=== PATIENT | male | born 1955 | race Caucasian/White ===

== ENCOUNTER 2017-12-12 10:53 | Outpatient (CLI) | payer OTHER | END 2017-12-12 10:54 | disposition home or self-care (01) | LOC: SC 10:53 | PROVIDERS: ATTEND Internal Medicine Pulmonary Disease | DX: G47.30 Sleep apnea, unspecified (principal); G47.10 Hypersomnia, unspecified; G47.8 Other sleep disorders; R06.83 Snoring | CPT/HCPCS: 99203; 99212 ==

== ENCOUNTER 2018-01-21 19:47 | Outpatient (CLI) | payer OTHER | END 2018-01-21 19:48 | disposition home or self-care (01) | LOC: SC 19:47 | PROVIDERS: ATTEND Internal Medicine Pulmonary Disease | DX: G47.33 Obstructive sleep apnea (adult) (pediatric) (principal); G47.61 Periodic limb movement disorder | CPT/HCPCS: 95810 ==

== ENCOUNTER 2018-02-28 09:12 | Outpatient (CLI) | payer BC, OTHER | END 2018-02-28 09:13 | disposition home or self-care (01) | LOC: SC 09:12 | PROVIDERS: ATTEND Nurse Practitioner Family | DX: G47.33 Obstructive sleep apnea (adult) (pediatric) (principal) | CPT/HCPCS: 99212; 99214 ==

== ENCOUNTER 2018-05-02 10:11 | Outpatient (CLI) | payer BC | END 2018-05-02 10:12 | disposition home or self-care (01) | LOC: SC 10:11 | PROVIDERS: ATTEND Nurse Practitioner Family | DX: G47.33 Obstructive sleep apnea (adult) (pediatric) (principal) | CPT/HCPCS: 99212; 99214 ==

== ENCOUNTER 2018-07-25 14:40 | Outpatient (CLI) | payer BC | END 2018-07-25 14:41 | disposition home or self-care (01) | LOC: SC 14:40 | PROVIDERS: ATTEND Internal Medicine Pulmonary Disease | DX: G47.33 Obstructive sleep apnea (adult) (pediatric) (principal) | CPT/HCPCS: 99212; 99213 ==

== ENCOUNTER 2020-02-20 13:43 | Emergency (ER) | payer MEDICARE, OTHER ==
--- NOTE | 2020-02-20 14:27 | ED Physician Documentation ---
PD HPI FOCAL NEURO - Stated complaint Stated Complaint: R HAND NUMBNESS - Chief complaint Chief Complaint: Neuro - History obtained from History obtained from: Patient, Family - History of Present Illness Timing - onset: How many hours ago (2) Timing - duration: Hours Timing - details: Abrupt onset Severity of deficit: Moderate Weakness: Hand Numbness: Hand Associated symptoms: No: Headache, Nausea / vomiting, Seizure, Syncope, Chest pain, Neck pain Contributing factors: negative: Anticoagulated, Vascular dz, Atrial fibrillation Baseline status: positive: A&OX3, ambulatory, indep Similar symptoms before: Has not had sx before - Additional information Additional information: 64-year-old male presents to the emergency department with chief complaint of right hand numbness and inability to move. Symptoms began about 2 hours prior to arrival. 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 Shortly thereafter he developed numbness of the sandwich. He denies that at any point he had a headache facial droop or slurred speech. He denies chest pain or palpitations. He has had no history of similar. Proximately 3 weeks ago he had a left inguinal hernia repair this was done as an outpatient. He denies that he has had any calf pain leg swelling. No previous history of DVT or PE. No history of atrial fibrillation. Denies any history of hypertension or diabetes. He is a non- smoker. Upon arrival to the emergency department patient reports that his hand weakness had begun to improve. He now has normal motor function. He still reports mild numbness of the hand however. meds: Citalopram and prednisone. pmh: depression, gout Review of Systems Constitutional: denies: Fever, Chills Eyes: denies: Loss of vision Ears: denies: Loss of hearing, Ear pain Nose: denies: Rhinorrhea / runny nose Respiratory: denies: Dyspnea GI: denies: Abdominal Pain, Abdominal Swelling Musculoskeletal: denies: Neck pain, Back pain, Extremity pain, Joint pain, Extremity swelling Neurologic: reports: Focal weakness, Numbness. denies: Difficulty speaking, Ne ar syncope, Syncope, Seizure, Confused, Altered mental status, Unresponsive, Headache, Head injury Psychiatric: reports: Depressed. denies: Suicidal, Homicidal PD PAST MEDICAL HISTORY - Past Medical History Past Medical History: Yes Cardiovascular: None Respiratory: None Neuro: None Endocrine/Autoimmune: None GI: None : None HEENT: None Psych: None Musculoskeletal: None Derm: None - Past Surgical History Past Surgical History: No - Present Medications Home Medications: Ambulatory Orders Medication Instructions Recorded Confirmed Ibuprofen [Motrin] 800 mg PO Q8H PRN #30 tablet 06/17/14 Ondansetron Odt [Zofran] 4 mg TL Q6H PRN #14 tablet 06/17/14 Oxycodone HCl/Acetaminophen 1 - 2 each PO Q6H PRN #20 tablet 06/17/14 [Percocet 5-325 mg Tablet] Tamsulosin [Flomax] 0.4 mg PO DAILY #14 capsule 06/17/14 - Allergies Allergies/Adverse Reactions: Allergies Allergy/AdvReac Type Severity Reaction Status Date / Time Penicillins Allergy Unknown Verified 06/17/14 14:54 Sulfa (Sulfonamide Allergy Unknown Verified 06/17/14 14:54 Antibiotics) - Social History Does the pt smoke?: No Smoking Status: Never smoker Does the pt drink ETOH?: No Does the pt have substance abuse?: No - Immunizations Immunizations are current?: No - POLST Patient has POLST: No PD ED PE NORMAL - General General: Alert and oriented X 3, No acute distress - HEENT HEENT: Atraumatic, PERRL, EOMI - Neck Neck: Supple, no meningeal sign, No adenopathy - Cardiac Cardiac: RRR, No murmur - Respiratory Respiratory: No respiratory distress - Abdomen Abdomen: Normal bowel sounds, Non tender - Back Back: No CVA TTP - Extremities Extremities: No deformity - Neuro Neuro: Alert and oriented X 3, 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, No motor deficit, No sensory deficit, Normal speech Eye Opening: Spontaneous Motor: Obeys Commands Verbal: Oriented GCS Score: 15 - Psych Psych: Normal mood NIHSS - Level of Consciousness Level of consciousness: (0) Alert, Keenly responsive LOC Questions: (0) Answers both Q's correct LOC Commands: (0) Performs both correctly - Gaze Best Gaze: (0) Normal - Visual Visual: (0) No loss - Facial Palsy Facial Palsy: (0) Normal, symmetrical movement - Motor Arms (both separate) Motor Arm (right): (0) No drift Motor Arm (left): (0) No drift - Motor Legs (both separate) Motor Leg (right): (0) No drift - Limb Ataxia Limb Ataxia: (0) Absent - Sensory Sensory: (0) Normal - Best Language Best Language: (0) No aphasia - Dysarthria Dysarthria: (0) Normal - Extinction and Inattention (formally neg Extinction and inattention: (0) No abnormality Results - Vitals Vitals: Vital Signs - 24 hr 02/20/20 02/20/20 13:57 15:47 Temperature 36.8 C Heart Rate 70 77 Respiratory 18 20 Rate Blood Pressure 138/73 H O2 Saturation 97 96 Oxygen O2 Source Room air - EKG (time done) 1435 Rate: Rate (enter#) (68) Rhythm: NSR [place]: Normal Intervals: Normal ND QRS: Normal Ischemia: Normal ST segments Computer interpretation: Agree with computer - Labs Labs: Laboratory Tests 02/20/20 02/20/20 02/20/20 14:10 14:10 14:10 WBC 7.8 RBC 4.87 Hgb 15.1 Hct 43.6 MCV 89.5 MCH 31.0 MCHC 34.6 RDW 12.5 Plt Count 218 MPV 10.9 Neut # (Auto) 6.0 Lymph # (Auto) 1.4 L Dunn # (Auto) 0.4 Eos # (Auto) 0.1 Baso # (Auto) 0.1 Absolute Nucleated RBC 0.00 Nucleated RBC % 0.0 Sodium 136 Potassium 3.9 Chloride 101 Carbon Dioxide 26 Anion Gap 9.0 BUN 19 Creatinine 1.0 Estimated GFR (MDRD) 75 L Glucose 165 H Calcium 8.9 Total Bilirubin 0.7 AST 24 ALT 24 Alkaline Phosphatase 62 Troponin I High Sens 3.8 Total Protein 7.0 Albumin 3.8 Globulin 3.2 Albumin/Globulin Ratio 1.2 Lipase 27 - Rads (name of study) CT angio head Radiology: Final report received, Discussed with rads (No significant intracranial arterial abnormality is seen. No masses or abnormal enhancement is seen. No imaging explanation is found for patient's presenting symptoms.) CT angio neck Radiology: Final report received (80 to 90% narrowing involving the origin of the left internal carotid artery with focal soft plaque. There is a 50 to 60% narrowing seen in the right proximal internal carotid or artery.) PD MEDICAL DECISION MAKING - ED course Complexity details: reviewed results, re-evaluated patient, d/w patient, d/w family ED course: 64-year-old male presented to the emergency department with acute onset right hand numbness and loss of movement. That resolved after about [address] angios of the neck reveals about a 90% narrowing in the left internal carotid artery. There is an associated 50 to 60% narrowing in the right proximal internal carotid artery.CT angios of the head was normal. Pt give 324 mg asa in the ED - Symptoms are consistent with a TIA however the stenosis and narrowing of the carotid arteries is significant and worrisome. - Patient is going to be transferred to [facility] admitted to the hospitalist service under Dr. Lilliam Castellano. At [facility] we expect that he will undergo neurovascular intervention for the carotid artery stenosis. He will be sent via ALS Departure - Departure Disposition: 02 Transfer Acute Care Hosp Clinical Impression: TIA (transient ischemic attack) Carotid artery stenosis Qualifiers: Laterality: bilateral Qualified Code(s): I65.23 - Occlusion and stenosis of bilateral carotid arteries
[2020-02-20 14:31] LABS: BASOPHILS # (AUTO) 0.1 10^3/uL (0.0-0.1); BASOPHILS % (AUTO) 0.8 %; EOSINOPHILS # (AUTO) 0.1 10^3/uL (0.0-0.7); EOSINOPHILS % (AUTO) 0.6 %; HGB - HEMOGLOBIN 15.1 g/dL (14.0-18.0); LYMPHOCYTES # (AUTO) 1.4 10^3/uL (1.5-3.5); LYMPHOCYTES % (AUTO) 17.2 %; MEAN CORPUSCULAR HGB CONC 34.6 g/dL (32.0-36.0); MEAN CORPUSCULAR VOLUME 89.5 fL (80.0-94.0); MEAN PLATELET VOLUME 10.9 fL (7.4-11.4); MONOCYTES # (AUTO) 0.4 10^3/uL (0.0-1.0); MONOCYTES % (AUTO) 4.8 %; NEUTROPHILS % (AUTO) 76.2 %; PLT - PLATELET COUNT 218 10^3/uL (130-450); RED BLOOD COUNT 4.87 10^6/uL (4.70-6.10); RED CELL DISTRIBUTION WIDTH 12.5 % (12.0-15.0); WHITE BLOOD COUNT 7.8 x10^3/uL (4.8-10.8)
[2020-02-20] MEDS ORDERED: IOVERSOL 320 100 ML VIAL IVP ONE ×2 (14:37→15:33)
[2020-02-20 14:52] LABS: ALBUMIN 3.8 g/dL (3.2-5.5); ALBUMIN/GLOBULIN RATIO 1.2 (1.0-2.2); BILIRUBIN,TOTAL 0.7 mg/dL (0.2-1.0); CALCIUM 8.9 mg/dL (8.5-10.3)
--- NOTE | 2020-02-20 15:26 | XRAY Report ---
PROCEDURE: Chest 1 View X-Ray INDICATIONS: Chest Pain TECHNIQUE: One view of the chest was acquired. COMPARISON: None FINDINGS: Surgical changes and devices: None. Lungs and pleura: No pleural effusions or pneumothorax. Lungs are clear. Mediastinum: Mediastinal contours appear normal. Heart size is normal. Bones and chest wall: No suspicious bony lesions. Overlying soft tissues appear unremarkable. IMPRESSION: No acute cardiopulmonary pathology. Reviewed by: Collin Loza MD on 02/20/2020 3:25 PM PDT Approved by: Collin Loza MD on 02/20/2020 3:25 PM PDT Station ID: [id number]
--- NOTE | 2020-02-20 15:31 | CT Report ---
PROCEDURE: ANGIO HEAD W/WO INDICATIONS: L sided facial droop CONTRAST: IV CONTRAST: Optiray 320 ml: 80 PO CONTRAST: *NO PO CONTRAST TECHNIQUE: Precontrast 4.5 mm thick angled axial sections acquired from the foramen magnum to the vertex. Afte r the administration of intravenous contrast, 1 mm thick sections acquired through the [place] of [place] is. Postcontrast 4.5 mm thick sections then re-acquired from the foramen magnum to the vertex. 3-di mensional ahrphhb-muqdzbohg-zlihmyowso (MIP) and/or volume rendering reformats were acquired of the c entral intracranial vasculature. For radiation dose reduction, the following was used: automated ex posure control, adjustment of mA and/or kV according to patient size. COMPARISON: Correlation is made with the accompanying neck angiogram 02/20/2020. FINDINGS: Image quality: Excellent. Anterior circulation: Intracranial internal carotid arteries are normal in size and flow. The flow within the paired anterior cerebral arteries is normal and symmetric. The flow within the middle cer ebral arteries is normal and symmetric. The anterior communicating artery is seen. No aneurysms are seen. Posterior circulation: Visualized portions of the vertebral arteries demonstrate normal caliber, and join to form a normal appearing basilar artery. Flow within the posterior cerebral arteries is norm al and symmetric. No aneurysms are seen. CSF spaces: Ventricles are normal in size and shape. Basal cisterns are patent. No extra-axial flu id collections. Brain: No midline shift. No intracranial bleeds or masses. Ball-white matter interface appears int act. Skull and face: Calvarium and facial bones appear intact, without suspicious lesions. Sinuses: Visualized sinuses and mastoids are clear. IMPRESSION: No imaging explanation is found for the patient's presenting symptoms. No significant intracranial abnormality is seen. No masses or abnormal enhancement can be seen. No significant intracranial arterial abnormality is seen. Reviewed by: Yuri Perez MD on 02/20/2020 2:29 PM AKDT Approved by: Yuri Perez MD on 02/20/2020 2:29 PM AKDT Station ID: [id number]
--- NOTE | 2020-02-20 15:34 | CT Report ---
PROCEDURE: ANGIO NECK W INDICATIONS: right arm weakness CONTRAST: IV CONTRAST: Optiray 320 ml: 80 PO CONTRAST: *NO PO CONTRAST TECHNIQUE: After the administration of intravenous contrast, 1.5 mm axial sections acquired from the aortic arch to the [place] of [place]. Coronal 3-D maximum intensity projection (MIP) and/or volume rendering ref ormats were then performed. For radiation dose reduction, the following was used: automated exposur e control, adjustment of mA and/or kV according to patient size. COMPARISON: Correlation is made with the accompanying intracranial CT angiogram 02/20/2020. FINDINGS: Image quality: Excellent. Carotid system: The great vessels demonstrate a conventional anatomy as they arise from the aortic a rch. The origins of the common carotid arteries appear patent. The common carotid arteries demonstr ate normal calibers and courses. The bifurcation regions demonstrate atherosclerotic irregularity an d calcification. There is focal soft plaque seen involving the origin of the left internal carotid ar shailesh, with 80-90% narrowing, as on series 4 image 109. There is 50-60% narrowing seen involving the r ight proximal internal carotid artery. Posterior circulation: The origins of the vertebral arteries appear patent. The more superior porti ons of the vertebral arteries demonstrate normal course and caliber. They join to form a normal appe aring basilar artery. Soft tissues: Visualized neck soft tissues demonstrate no suspicious abnormalities. The thyroid gla nd is normal in size. Bones: No suspicious bony lesions. Visualized cervical spine appears normally aligned. Age-appro priate degenerative changes are seen. IMPRESSION: 80-90% narrowing seen involving the origin of the left internal carotid artery, with focal soft plaqu e. A vascular surgery/interventional radiology consultation is recommended. There is 50-60% narrowing seen involving the right proximal internal carotid artery. The estimate of stenosis included in the report of the imaging study was calculated using the NASCET method Reviewed by: Yuri Perez MD on 02/20/2020 2:33 PM AKDT Approved by: Yuri Perez MD on 02/20/2020 2:33 PM AKDT Station ID: [id number]
[2020-02-20] MEDS ORDERED: ASPIRIN CHEW 81 MG TABLET PO STA (16:31)
[2020-02-20 18:11] VITALS: BP 128/70
== END 2020-02-20 18:00 | disposition short-term general hospital (02) ==
LOC: ED 13:43
DX: G45.9 Transient cerebral ischemic attack, unspecified (principal); I65.23 Occlusion and stenosis of bilateral carotid arteries
CPT/HCPCS: 36415; 70496; 70498; 71045; 80053; 83690; 84484; 85025; 93005; 99284; 99285; A9270; Q9967

== ENCOUNTER 2020-02-20 18:06 | Outpatient (CLI) | payer MEDICARE, OTHER | END 2020-02-20 18:07 | disposition short-term general hospital (02) | LOC: EMS 18:06 | PROVIDERS: ATTEND Surgery | DX: G45.9 Transient cerebral ischemic attack, unspecified (principal) | CPT/HCPCS: A0425; A0426 ==

== ENCOUNTER 2020-06-17 10:36 | Outpatient (CLI) | payer MEDICARE, OTHER ==
[2020-06-17] MEDS ORDERED: IOVERSOL 320 50 ML VIAL ONE (10:54)
[2020-06-17] MEDS ORDERED: IOVERSOL 320 100 ML VIAL IVP ONE ×2 (10:54→18:42)
[2020-06-17 11:16] LABS: ALBUMIN 4.2 g/dL (3.2-5.5); ALBUMIN/GLOBULIN RATIO 1.4 (1.0-2.2); CALCIUM 9.2 mg/dL (8.5-10.3); TOTAL PROTEIN 7.2 g/dL (6.7-8.2)
--- NOTE | 2020-06-17 13:24 | CT Report ---
PROCEDURE: Abdomen/Pelvis W INDICATIONS: ABD PAIN CONTRAST: IV CONTRAST: Optiray 320 ml: 100 PO CONTRAST: Optiray 320 ml50 TECHNIQUE: After the administration of contrast, 5 mm thick sections acquired from the diaphragms to the sym physis. 5 mm thick coronal and sagittal reformats were acquired. For radiation dose reduction, the following was used: automated exposure control, adjustment of mA and/or kV according to patient size . COMPARISON: None. FINDINGS: Image quality: Excellent. ABDOMEN: Lung bases: Lung bases are clear. Heart size is normal. Solid organs: Liver and spleen are normal in size and enhancement. Gallbladder is unremarkable. Bi liary system is non dilated. Pancreas enhances normally. No adrenal nodules. Right kidney: 3 mm nonobstructing lower pole stone. No renal mass or hydronephrosis. Left kidney: 1.6 cm in maximum diameter lower pole stone extending towards the renal pelvis, 7 mm non obstructing lower pole calyceal stone. No hydronephrosis. Peritoneum and bowel: Bowel loops demonstrate normal wall thickness and caliber. No free fluid or a ir. Sigmoid diverticulosis without evidence of diverticulitis. Nodes and vessels: No retroperitoneal or mesenteric adenopathy by size criteria. Aorta and inferior vena cava are normal in size. Miscellaneous: No ventral hernias. PELVIS: Genitourinary: Bladder wall thickness is normal. Enlarged prostate Miscellaneous: Small bilateral inguinal hernias containing fat. No inguinal adenopathy. Bones: No suspicious bony lesions. No vertebral body compression fractures. IMPRESSION: 1. Nonobstructing left renal stones, measuring 7 mm and 16 mm respectively. 2. Small nonobstructing right renal stone. 3. Enlarged prostate. 4. Mild sigmoid diverticulosis. 5. Bilateral inguinal hernias containing fat. Reviewed by: Tacos Sanchez MD on 06/17/2020 1:23 PM PDT Approved by: Tacos Sanchez MD on 06/17/2020 1:23 PM PDT Station ID: [id number]
[2020-06-17] MEDS ORDERED: IOVERSOL 320 50 ML VIAL PO ONE (18:43)
== END 2020-06-17 10:37 | disposition home or self-care (01) ==
LOC: DI 10:36
PROVIDERS: ATTEND Nurse Practitioner Family
DX: N20.0 Calculus of kidney (principal); N40.0 Benign prostatic hyperplasia without lower urinary tract symptoms; K57.30 Diverticulosis of large intestine without perforation or abscess without bleeding; K40.20 Bilateral inguinal hernia, without obstruction or gangrene, not specified as recurrent
CPT/HCPCS: 36415; 74177; 80053; Q9967

== ENCOUNTER 2021-12-16 21:06 | Outpatient (CLI) | payer MEDICARE, OTHER | END 2021-12-16 21:07 | disposition short-term general hospital (02) | LOC: EMS 21:06 | DX: R07.9 Chest pain, unspecified (principal); R61 Generalized hyperhidrosis; R06.00 Dyspnea, unspecified; R42 Dizziness and giddiness | CPT/HCPCS: A0425; A0433 ==

== ENCOUNTER 2023-09-01 08:00 | Outpatient (CLI) | payer MEDICARE, OTHER ==
--- NOTE | 2023-09-02 00:19 | XRAY Report ---
PROCEDURE: Abdomen 1 View (KUB) INDICATIONS: KIDNEY STONES TECHNIQUE: One view of the abdomen. COMPARISON: CT abdomen and pelvis 05/25/2023 FINDINGS: Paucity of small bowel gas. No evidence of obstruction. There is a 2 cm calcification projecting over the left kidney, similar to prior CT. Additional smalle r calcification seen just inferior to this. No right renal calcifications are seen. The osseous structures are unremarkable. IMPRESSION: Left renal calcifications measuring up to 2 cm, similar in appearance to prior CT. Reviewed by: Sunday Sutton MD on 09/02/2023 12:17 AM PST Approved by: Sunday Sutton MD on 09/02/2023 12:17 AM PST Station ID: [id number]
== END 2023-09-01 23:59 | disposition home or self-care (01) ==
LOC: DI.WOS 08:00
PROVIDERS: ATTEND Urology
DX: N20.0 Calculus of kidney (principal)

== ENCOUNTER 2023-10-31 06:22 | Day surgery (SDC) | payer MEDICARE, OTHER ==
[2023-10-31] MEDS: LACTATED RINGERS 1,000 ML IV ONE ×4 (06:30→09:30)
--- NOTE | 2023-10-31 06:53 | ANESTHESIA ---
Pre-Anesthesia VS, & Labs - Diagnosis Screening, family hx colon ca, L kidney stone - Procedure colonoscopy, ESWL Vital Signs: Temp Pulse Resp BP Pulse Ox O2 Flow Rate 36.2 C L 75 18 140/88 H 98 10/31/23 06:30 10/31/23 06:30 10/31/23 06:30 10/31/23 06:30 10/31/23 06:30 Height: 5 ft 8 in Weight (kg): 80.3 kg Body Mass Index: 26.9 BMI Classification: Overweight - NPO >8 hours Last Fluid Intake: am prep - Lab Results Lab results reviewed: Yes Home Medications and Allergies Home Medications: Ambulatory Orders Aspirin EC [Ecotrin] 81 mg PO DAILY 10/24/23 Astaxanthin 12 mg PO DAILY 10/24/23 Cholecalciferol [Vitamin D3] 5,000 unit PO DAILY 10/24/23 Clopidogrel [Plavix] 75 mg PO DAILY 10/24/23 Ibuprofen [Motrin] 400 mg PO Q8H PRN 10/24/23 Magnesium 250 mg PO ONCE 10/24/23 Multivitamin 1 each PO DAILY 10/24/23 Rosuvastatin Calcium [Crestor] 10 mg PO DAILY 10/24/23 [place] 540 mg PO DAILY 10/24/23 Ubidecarenone/Vit E Acet [Co Q-10 100 mg Softgel] 1 each PO DAILY 10/24/23 allopurinoL [Zyloprim] 100 mg PO DAILY 10/24/23 Aspirin EC [Ecotrin] 81 mg PO DAILY 10/24/23 Astaxanthin 12 mg PO DAILY 10/24/23 Cholecalciferol [Vitamin D3] 5,000 unit PO DAILY 10/24/23 Clopidogrel [Plavix] 75 mg PO DAILY 10/24/23 Ibuprofen [Motrin] 400 mg PO Q8H PRN 10/24/23 Magnesium 250 mg PO ONCE 10/24/23 Multivitamin 1 each PO DAILY 10/24/23 Rosuvastatin Calcium [Crestor] 10 mg PO DAILY 10/24/23 Saw Row[place] 540 mg PO DAILY 10/24/23 Ubidecarenone/Vit E Acet [Co Q-10 100 mg Softgel] 1 each PO DAILY 10/24/23 allopurinoL [Zyloprim] 100 mg PO DAILY 10/24/23 Allergies/Adverse Reactions: Allergies Allergy/AdvReac Type Severity Reaction Status Date / Time midazolam [From Versed] Allergy Hallucinati Verified 10/24/23 12:12 ons Penicillins Allergy Unknown Verified 06/17/14 14:54 Sulfa (Sulfonamide Allergy Unknown Verified 06/17/14 14:54 Antibiotics) Anes History & Medical History - Anesthetic History Anesthesia Complications: reports: No previous complications Family history of Anesthesia Complications: Denies Family history of Malignant Hyperthermia: Denies - Medical History Cardiovascular: reports: Hypertension, High cholesterol, PR Pulmonary: reports: Sleep apnea Gastrointestinal: reports: None Urinary: reports: Benign prostate hypertrophy, Kidney stones, Other Neuro: reports: None Musculoskeletal: reports: Gout Endocrine/Autoimmune: reports: None Blood Disorders: reports: None Skin: reports: Other Smoking Status: Never smoker - Surgical History General: reports: Colonoscopy, Other Cardiothoracic: reports: Coronary stent Neurologic: reports: Other Dermatologic: reports: Skin cancer surgery Exam General: Alert, Oriented x3 Dental: WNL Mouth Openin Fingerbreadth Neck Mobility: Normal Mallampati classification: II Thyromental Distance: 4-6 cm Respiratory: Lungs clear, Normal breath sounds, No respiratory distress Cardiovascular: Regular rate Neurological: Normal speech Mental/Cognitive Status: Alert/Oriented X3, Normal for patient Cognitive Status: Within normal limits Plan Anesthesia Type: General, Total IV Consent for Procedure(s) Verified and Reviewed: Yes Code Status: Attempt Resuscitation ASA classification: 3-Severe systemic disease Is this case an emergency?: No
[2023-10-31] MEDS ORDERED: PROPOFOL 500 MG/50 ML 500 MG/50 ML VIAL ONE (06:59)
[2023-10-31] MEDS ORDERED: LIDOCAINE-MPF 2% 5 ML VIAL ONE (06:59)
[2023-10-31] MEDS ORDERED: ePHEDrine 50 MG/ML VIAL IVP PRN (07:19)
[2023-10-31] MEDS ORDERED: fentaNYL 100 MCG/2 ML VIAL IVP PRN (07:19)
[2023-10-31] MEDS ORDERED: METOCLOPRAMIDE 10 MG/2 ML VIAL IVP PRN (07:19)
[2023-10-31] MEDS ORDERED: HYDROmorphone 0.5 MG/0.5 ML SYRINGE IVP PRN (07:19)
[2023-10-31] MEDS ORDERED: ATROPINE ABBOJECT 1 MG/10 ML SYRINGE IVP PRN (07:19)
[2023-10-31] MEDS ORDERED: NALOXONE 0.4 MG/ML VIAL IVP PRN (07:19)
[2023-10-31] MEDS ORDERED: ceFAZolin 2 GM VIAL ONE (07:19)
[2023-10-31] MEDS ORDERED: ONDANSETRON 4 MG/2 ML VIAL IVP PRN ×2 (07:19→08:55)
[2023-10-31] MEDS ORDERED: MORPHINE 2 MG/ML CARPUJECT IVP PRN (07:19)
[2023-10-31] MEDS ORDERED: fentaNYL 100 MCG/2 ML VIAL ONE (07:50)
[2023-10-31] MEDS ORDERED: LACTATED RINGERS 1,000 ML IV SCH (08:00)
[2023-10-31] MEDS ORDERED: ePHEDrine 50 MG/ML VIAL IVP ONE (08:09)
[2023-10-31] MEDS ORDERED: SODIUM CHLORIDE 0.9% 10 ML VIAL IVP ONE (08:10)
[2023-10-31] MEDS ORDERED: ONDANSETRON 4 MG/2 ML VIAL ONE (08:28)
[2023-10-31] MEDS ORDERED: DEXAMETHASONE 4 MG/ML VIAL ONE (08:28)
[2023-10-31] MEDS ORDERED: HYDROcod/ACETAM 5/325 MG TABLET PO PRN (08:55)
--- NOTE | 2023-10-31 09:01 | Discharge Plan ---
Discharge Plan Problem Reviewed?: Yes Disposition: Home, Self Care Condition: Good Prescriptions: Docusate Sodium 100Mg Capsule [Colace 100Mg Capsule] 100 mg PO DAILY #7 cap oxyCODONE [Roxicodone] 5 mg PO Q4H PRN #10 tablet PRN Reason: Pain Diet: Regular Activity Restrictions: No Restrictions Shower Restrictions: No Driving Restrictions: No Instruction Topics: Lithotripsy Shock Wave Additional Instructions or Follow Up instructions: You will be contacted for followup in about [address] Marlon Ulloa Smoking: If you smoke, Please STOP! Call for help.
--- NOTE | 2023-10-31 09:05 | OPERATIVE REPORT ---
Operative Report - General Procedure Date: 10/31/23 Planned Procedure: Left extracorporeal shock wave lithotripsy Pre-Op Diagnosis: Left kidney stone Procedure Performed: Left extracorporeal shock wave lithotripsy Post Op Diagnosis: same - Procedure Note Primary Surgeon: Marlon Anesthesia Provider: KELBY Mccarthy Anesthesia Technique: General LMA Findings: Large 14mm left renal stone Significant breaking up into fragments 2335 shocks Complications: Ectopy at end of case, so ended slightly early - Other Other Information/Narrative: After informed consent was obtained the patient was brought to the OR with Dr. Ryan for colonoscopy. He is procedure will be dictated separately. Under the same anesthetic he was brought from the endoscopy suite to a separate OR to perform a shockwave procedure. He was laid in the supine position and a shockwave probe was placed against his left flank. Service Team Leader imaging showed a large about 1.5 cm left renal stone. Unsurprisingly had a large amount of gas in his colon. A formal timeout was performed reconfirming the patient, procedure and laterality. The shockwave Dornier 2 machine was used to deliver shocks to the stone. This was started at 60 Hz. There was a pause after the first 100 shocks. We then increased the frequency to 90 Hz after about 5 minutes. Periodic fluoroscopy was used and we could see if the stone was breaking up quite nicely. After 2335 shocks we did notice that the patient was having some ectopy but as this was close to the end of the case we elected to end early. The ectopy resolved immediately. Final fluoroscopy showed a fairly decent breaking up of his stone but there still was radiopaque pieces remaining. The patient was reversed of anesthesia and brought to the PACU without further incident. He will follow-up in 6 weeks time with a KUB in the office.
[2023-10-31 09:52] VITALS: O2SAT 98
[2023-10-31 10:02] VITALS: BP 140/82
--- NOTE | 2023-10-31 11:25 | ANESTHESIA POST OP EVALUATION ---
Anesthesia Post Eval - Post Anesthesia Eval Vitals: Last Vital Signs Temp 36.2 C L 10/31/23 09:30 Pulse 67 10/31/23 09:53 Resp 15 10/31/23 09:53 BP 140/82 H 10/31/23 09:53 Pulse Ox 98 10/31/23 09:53 O2 Flow Rate CV Function Including HR & BP: Stable Pain Control: Satisfactory Nausea & Vomiting: Negative Mental Status: Baseline Respiratory Status: Airway Patent Hydration Status: Satisfactory Anesthesia Complications: None
== END 2023-10-31 06:23 | disposition home or self-care (01) ==
LOC: SDS 06:22
PROVIDERS: ATTEND Urology
PROC: 0TF4XZZ Fragmentation in Left Kidney Pelvis, External Approach (ICD-10-PCS; 2023-10-31)
PROC: 0DBH8ZZ Excision of Cecum, Via Natural or Artificial Opening Endoscopic (ICD-10-PCS; principal; 2023-10-31 07:30)
DX: Z12.11 Encounter for screening for malignant neoplasm of colon (principal); D12.0 Benign neoplasm of cecum; K64.1 Second degree hemorrhoids; K57.30 Diverticulosis of large intestine without perforation or abscess without bleeding; N20.0 Calculus of kidney; Z80.0 Family history of malignant neoplasm of digestive organs; I25.2 Old myocardial infarction; Z86.16 Personal history of COVID-19; G47.30 Sleep apnea, unspecified; I10 Essential (primary) hypertension; Z87.891 Personal history of nicotine dependence; N40.1 Benign prostatic hyperplasia with lower urinary tract symptoms
CPT/HCPCS: 45380; 50590; J7120

== ENCOUNTER 2023-12-14 09:30 | Outpatient (CLI) | payer MEDICARE, OTHER ==
--- NOTE | 2023-12-14 20:09 | XRAY Report ---
PROCEDURE: Abdomen 1 View (KUB) INDICATIONS: KIDNEY STONES TECHNIQUE: Single view the abdomen COMPARISON: None. FINDINGS: Left renal calcifications have increased in number. The largest measures 1.1 cm. Right renal shadow i s clear. Osseous structures unremarkable. IMPRESSION: Left-sided nephrolithiasis, increasing in number. Reviewed by: Wil Robles MD on 12/14/2023 7:07 PM AKDT Approved by: Wil Robles MD on 12/14/2023 7:07 PM AKDT Station ID: [id number]
== END 2023-12-14 23:59 | disposition home or self-care (01) ==
LOC: DI.WOS 09:30
PROVIDERS: ATTEND Urology
DX: N20.0 Calculus of kidney (principal)

== ENCOUNTER 2023-12-26 13:09 | Outpatient (CLI) | payer MEDICARE, OTHER ==
--- NOTE | 2023-12-26 16:54 | CT Report ---
PROCEDURE: Pelvis WO INDICATIONS: URETERIC STONE TECHNIQUE: Noncontrast 3 mm axial sections acquired through the bony pelvis, with coronal and sagittal reformatt ing. For radiation dose reduction, the following was used: automated exposure control, adjustment of mA and/or kV according to patient size. COMPARISON: Abdominal radiograph 12/14/2023. CT KUB 05/25/2023. FINDINGS: Image quality: Excellent. Visualized kidneys: Inferior aspect of the kidneys are visualized. -Obstructing calculus in the proximal left ureter measuring 0.5 cm in diameter; and 0.9 cm in length. -Several additional staghorn-like calculi at the inferior pole of the left kidney. Peritoneum and bowel: Bowel loops demonstrate normal wall thickness and caliber. No free fluid or a ir. Sigmoid diverticulosis without evidence of diverticulitis. Normal appendix. Nodes and vessels: No retroperitoneal or mesenteric adenopathy by size criteria. Aorta and inferior vena cava are normal in size. Miscellaneous: No ventral hernias. PELVIS: Genitourinary: Calculus at or near the the right UVJ measuring 0.6 cm, unchanged. Small additional s tone in the right bladder. Bladder is decompressed. Prostatomegaly. Miscellaneous: Fat-containing left inguinal hernia. Right inguinal hernia containing bowel. Bones: No suspicious bony lesions. No vertebral body compression fractures. IMPRESSION: 1. Obstructing calculus in the proximal left ureter measuring 0.5 cm in diameter. 2. Multiple additional left kidney stones. 3. Calculus at or near the right UVJ measuring 0.6 cm is unchanged. Small additional bladder stone. 4. No hydroureter seen. 5. Inguinal hernias. Reviewed by: Jasbir Swift MD on 12/26/2023 4:43 PM PDT Approved by: Jasbir Swift MD on 12/26/2023 4:43 PM PDT Station ID: [id number]
== END 2023-12-26 13:10 | disposition home or self-care (01) ==
LOC: DI 13:09
PROVIDERS: ATTEND Urology
DX: N20.2 Calculus of kidney with calculus of ureter (principal); K40.20 Bilateral inguinal hernia, without obstruction or gangrene, not specified as recurrent; N40.0 Benign prostatic hyperplasia without lower urinary tract symptoms; N21.0 Calculus in bladder

== ENCOUNTER 2024-01-02 12:12 | Day surgery (SDC) | payer MEDICARE, OTHER ==
[2024-01-02] MEDS: LACTATED RINGERS 1,000 ML IV ONE ×2 (12:21→15:51)
--- NOTE | 2024-01-02 14:07 | ANESTHESIA ---
Pre-Anesthesia VS, & Labs - Diagnosis bilateral kidney stones - Procedure cystoscopy, bilateral retrograde pyelogram, bilateral flexible ureteroscopy, laser lithotripsy, stent placement Vital Signs: Temp Pulse Resp BP Pulse Ox O2 Flow Rate 35.9 C L 69 19 154/86 H 97 01/02/24 12:22 01/02/24 12:22 01/02/24 12:22 01/02/24 12:22 01/02/24 12:22 Height: 5 ft 8 in Weight (kg): 80.5 kg Body Mass Index: 26.9 BMI Classification: Overweight - NPO >8 hours Home Medications and Allergies Aspirin EC [Ecotrin] 81 mg PO DAILY 10/24/23 Rosuvastatin Calcium [Crestor] 10 mg PO DAILY 10/24/23 allopurinoL [Zyloprim] 100 mg PO DAILY 10/24/23 Allergies/Adverse Reactions: Allergies Allergy/AdvReac Type Severity Reaction Status Date / Time midazolam [From Versed] Allergy Hallucinati Verified 01/02/24 12:45 ons Penicillins Allergy Unknown Verified 01/02/24 12:45 Sulfa (Sulfonamide Allergy Unknown Verified 01/02/24 12:45 Antibiotics) Anes History & Medical History - Anesthetic History Anesthesia Complications: reports: No previous complications - Medical History Cardiovascular: reports: Hypertension, High cholesterol, ND (stents x5), Other (>4mets) Pulmonary: reports: Sleep apnea Gastrointestinal: reports: None Urinary: reports: Benign prostate hypertrophy, Kidney stones, Other Neuro: reports: None Musculoskeletal: reports: Gout Endocrine/Autoimmune: reports: None Blood Disorders: reports: None Skin: reports: Other Smoking Status: Never smoker Psychosocial: reports: No issues indicated History of Cancer?: Yes (squamous cell) - Surgical History General: reports: Colonoscopy, Other Eyes Ears Nose Throat (EENT): reports: Tonsil/Adenoidectomy Cardiothoracic: reports: Coronary stent Neurologic: reports: Other Dermatologic: reports: Skin cancer surgery Exam General: Alert, Oriented x3, Cooperative, No acute distress Dental: WNL Mouth Openin Fingerbreadth Neck Mobility: Normal Mallampati classification: II Thyromental Distance: 4-6 cm Mental/Cognitive Status: Alert/Oriented X3, Normal for patient Plan Anesthesia Type: General Consent for Procedure(s) Verified and Reviewed: Yes Code Status: Attempt Resuscitation ASA classification: 3-Severe systemic disease Is this case an emergency?: No
[2024-01-02] MEDS ORDERED: fentaNYL 100 MCG/2 ML VIAL IVP PRN (14:14)
[2024-01-02] MEDS ORDERED: HYDROmorphone 0.5 MG/0.5 ML SYRINGE IVP PRN (14:14)
[2024-01-02] MEDS ORDERED: ONDANSETRON 4 MG/2 ML VIAL IVP PRN ×2 (14:14→15:34)
[2024-01-02] MEDS ORDERED: MORPHINE 2 MG/ML CARPUJECT IVP PRN (14:14)
[2024-01-02] MEDS ORDERED: ATROPINE ABBOJECT 1 MG/10 ML SYRINGE IVP PRN (14:14)
[2024-01-02] MEDS ORDERED: NALOXONE 0.4 MG/ML VIAL IVP PRN (14:14)
[2024-01-02] MEDS ORDERED: KETOROLAC 30 MG/ML VIAL ONE (14:23)
[2024-01-02] MEDS ORDERED: LIDOCAINE-PF 2% 10 ML AMP SUBQ ONE (14:23)
[2024-01-02] MEDS ORDERED: PROPOFOL 200 MG/20 ML VIAL IVP ONE ×2 (14:23→15:09)
[2024-01-02] MEDS ORDERED: ONDANSETRON 4 MG/2 ML VIAL ONE (14:23)
[2024-01-02] MEDS ORDERED: iohexoL-240 10 ML VIAL IVP ONE (14:23)
[2024-01-02] MEDS ORDERED: fentaNYL 100 MCG/2 ML VIAL ONE (14:24)
[2024-01-02] MEDS ORDERED: LIDOCAINE 2% URO-JET 5 ML SYRINGE UR ONE (14:24)
[2024-01-02] MEDS ORDERED: ceFAZolin 1 GM VIAL ONE (14:40)
[2024-01-02] MEDS ORDERED: LACTATED RINGERS 1,000 ML IV SCH (15:00)
[2024-01-02] MEDS: LIDOCAINE 2% URO-JET 5 ML SYRINGE UR ONE (15:00)
[2024-01-02] MEDS ORDERED: ePHEDrine 50 MG/ML VIAL IVP ONE (15:01)
[2024-01-02] MEDS ORDERED: HYDROcod/ACETAM 5/325 MG TABLET PO PRN (15:34)
--- NOTE | 2024-01-02 15:40 | Discharge Plan ---
Discharge Plan Problem Reviewed?: Yes Disposition: Home, Self Care Condition: Good Prescriptions: Docusate Sodium 100Mg Capsule [Colace 100Mg Capsule] 100 mg PO DAILY #7 cap oxyCODONE [Roxicodone] 5 mg PO Q4H PRN #10 tablet PRN Reason: Pain Diet: Regular Activity Restrictions: Additional Comments (as instructed) Shower Restrictions: No Driving Restrictions: No Instruction Topics: Stents Ureteral Additional Instructions or Follow Up instructions: You be contacted for follow-up with Dr. Mason in 3 months time with a renal ultrasound No Smoking: If you smoke, Please STOP! Call for help. Follow-up with: Ba Mason MD [Provider Admit Priv/Credential] -
--- NOTE | 2024-01-02 15:47 | OPERATIVE REPORT ---
Operative Report - General Procedure Date: 01/02/24 Planned Procedure: Cystoscopy bilateral ureteroscopy, laser lithotripsy, stent Pre-Op Diagnosis: bilateral ureteral calculus Procedure Performed: Cystoscopy, cystolitholopaxy (5mm), bilateral ureteroscopy, bilateral laser lithotripsy, bilateral stents Post Op Diagnosis: bilateral ureteral calculus, bladder stone - Procedure Note Primary Surgeon: Marlon Anesthesia Provider: KELBY Bernal Anesthesia Technique: General LMA Pathology: bladder stone Estimated Blood Loss (mL): 1 Findings: 5mm bladder stone right distal 5mm stone dusted left upper pole and mid pole stones dusted, lower pole stones not reachable Complications: none - Other Other Information/Narrative: After informed sent was obtained the patient brought the OR in the supine position. He was anesthetized per anesthesia protocols and placed in dorsolithotomy position. He was prepped draped in usual sterile fashion. A formal timeout was performed reconfirming the patient, procedure and laterality. A 22 Taiwanese cystoscope was advanced easily into urinary bladder. He did have a fairly wide open bulbar urethral stricture which easily accommodated the cystoscope. He had lateral lobe hypertrophy and no median lobe of note. In the bladder we could see a 5 mm bladder stone that was evacuated and sent for analysis. Attention was paid to the right side where a sensor wire was used to cannulate the right ureteral orifice and this was advanced up into the kidney. A radiopaque stone was seen distally. It was about 5 mm in size. Using a short semirigid ureteroscope we advanced into the distal right ureter and found the stone. It was dark brown and using a 200 m laser fiber at a power of 0.8 and a rate of 8 we dusted to small fragments. There were no other radiopacities seen. The wire was left in place. We then turned attention to the left side where we placed a sensor wire up to the left ureter into the kidney. No stones were seen in the ureter but there were several radiopacities in the kidney itself. A 12 x 14 was advanced 46 cm ureteral access sheath was advanced over the wire up to the proximal ureter. A flexible ureteroscope was advanced up this into the kidney itself. There we found multiple stones. There was about an 8 mm stone in the upper pole along with about a 7 mm stone in the midpole. There is a larger collection about a 1 cm stone in the left lower pole. Using a 200 m laser fiber we are able to dust the 8 mm stone in 7 mm stone however we only catch the edge of the 1 cm stone in the lower pole as this was around a corner. We elected to leave this in place as it was not accessible. We then cleared the ureter under direct visualization. Using a cystoscope a 6 Taiwanese 26 cm double-J stent was placed with good curling noted in the left kidney and good curling of the bladder. We then placed a 6 Taiwanese 26 cm double-J stent on the right side with good curling noted in the kidney and good curling noted in the bladder. We emptied his bladder and placed a Uro-Jet and taped the stents via their strings to his penis using a Tegaderm This concluded the procedure and the patient tolerated the procedure well. He will take the stents out on and follow-up in 3 months time
[2024-01-02 16:51] VITALS: BP 139/87; O2SAT 98
--- NOTE | 2024-01-02 19:26 | ANESTHESIA POST OP EVALUATION ---
Anesthesia Post Eval - Post Anesthesia Eval Vitals: Last Vital Signs Temp 36.3 C L 01/02/24 16:05 Pulse 73 01/02/24 16:43 Resp 18 01/02/24 16:43 BP 139/87 H 01/02/24 16:43 Pulse Ox 98 01/02/24 16:43 O2 Flow Rate CV Function Including HR & BP: Stable Pain Control: Satisfactory Nausea & Vomiting: Negative Mental Status: Baseline Respiratory Status: Airway Patent Hydration Status: Satisfactory Anesthesia Complications: None
--- NOTE | 2024-01-03 11:49 | XRAY Report ---
PROCEDURE: OR C-Arm Procedure INDICATIONS: CYSTO, STENT PLACEMENT FLUORO TIME: 0.3 MIN TECHNIQUE: 6 intraoperative fluoroscopic images of lower abdomen and pelvis were obtained. COMPARISON: CT of pelvis dated 12/26/2023. Abdominal radiograph dated 12/14/2023 FINDINGS: Intraoperative fluoroscopic images shows bilateral ureteral stent placements under fluoroscopic parker nce. IMPRESSION: Fluoroscopy guidance was provided intraoperatively for cystogram and bilateral ureteral stent placeme nts. Reviewed by: Collin Loza MD on 01/03/2024 11:48 AM PDT Approved by: Collin Loza MD on 01/03/2024 11:48 AM PDT Station ID: [id number]
== END 2024-01-02 12:13 | disposition home or self-care (01) ==
LOC: SDS 12:12
PROVIDERS: ATTEND Urology
PROC: 0TF68ZZ Fragmentation in Right Ureter, Via Natural or Artificial Opening Endoscopic (ICD-10-PCS; 2024-01-02)
PROC: 0TF48ZZ Fragmentation in Left Kidney Pelvis, Via Natural or Artificial Opening Endoscopic (ICD-10-PCS; principal; 2024-01-02 13:30)
DX: N13.2 Hydronephrosis with renal and ureteral calculous obstruction (principal); N21.0 Calculus in bladder; I10 Essential (primary) hypertension; I25.2 Old myocardial infarction; Z95.5 Presence of coronary angioplasty implant and graft; N40.0 Benign prostatic hyperplasia without lower urinary tract symptoms
CPT/HCPCS: 52356; 82365; C2617; J7120; Q9966